=== PATIENT | female | born 1990 | race Caucasian/White ===

== ENCOUNTER 2021-04-25 01:47 | Inpatient (IN) | payer MEDICAID ==
[~2021-04-25] VITALS: Ht 152.4 cm; Wt 79.8 kg
[2021-04-25] MEDS ORDERED: SODIUM CHLORIDE 0.9% 1,000 ML IV ONE (02:00)
[2021-04-25 02:33] LABS: BASOPHILS % 0.6 % (0.0-2.0); EOSINOPHILS % 0.7 % (0.0-5.0); HEMATOCRIT. 37.7 % (36.0-48.0); HEMOGLOBIN. 12.9 g/dL (12.0-16.0); LYMPHOCYTES % 21.9 % (20.0-50.0); MEAN CORPUSCULAR VOLUME 87.5 fL (81.0-99.0); MEAN PLATELET VOLUME 8.1 fl (7.4-10.4); MONOCYTES % 6.3 % (2.0-8.0); NEUTROPHILS % 70.5 % (40.0-76.0); PLATELET 218 x1000/uL (130-400); RED BLOOD CELL COUNT 4.31 mill/uL (4.2-5.4)
[2021-04-25 02:36] LABS: CHLORIDE 106 mEq/L (98-107)
[2021-04-25 02:59] LABS: CLARITY URINE CLEAR (CLEAR); COLOR URINE RED (YELLOW); KETONES URINE NEGATIVE (NEGATIVE); LEUKOCYTE ESTERASE URINE TRACE (NEGATIVE); NITRITE URINE NEGATIVE (NEGATIVE); OCCULT BLOOD URINE 3+ (NEGATIVE); PH URINE 5.5 (4.5-8.0); PROTEIN URINE 1+ (NEGATIVE); SPECIFIC GRAVITY URINE 1.006 (1.005-1.030); UROBILINOGEN URINE 0.2 E.U./dL (0.2-1.0)
[2021-04-25 03:01] LABS: B-HCG QUANTITATIVE 41032 mIU/mL (<3)
[2021-04-25 20:30] VITALS: BP 118/72
[2021-04-25 22:30] VITALS: BP 118/72
[2021-04-25] MEDS ORDERED: DEXT 5%/LACTATED RINGERS 1,000 ML IV SCH (23:30)
[2021-04-26] VITALS: BP 115/62
[2021-04-26 04:00] VITALS: BP 118/67
[2021-04-26] MEDS ORDERED: PNV1TABL50 PO (04:29)
[2021-04-26 07:21] LABS: BASOPHILS % 0.7 % (0.0-2.0); EOSINOPHILS % 1.2 % (0.0-5.0); HEMATOCRIT. 34.9 % (36.0-48.0); HEMOGLOBIN. 12.3 g/dL (12.0-16.0); LYMPHOCYTES % 22.7 % (20.0-50.0); MEAN CORPUSCULAR HEMOGLOBIN 30.7 pg (28.0-32.0); MEAN CORPUSCULAR VOLUME 87.1 fL (81.0-99.0); MEAN PLATELET VOLUME 8.2 fl (7.4-10.4); NEUTROPHILS % 69.4 % (40.0-76.0); PLATELET 194 x1000/uL (130-400); RED BLOOD CELL COUNT 4.01 mill/uL (4.2-5.4); RED CELL DISTRIBUTION WIDTH 13.1 % (11.6-14.6)
[2021-04-26 08:00] VITALS: BP 110/64
[2021-04-26] MEDS ORDERED: PRENATAL VIT/FE FUMARATE/FA TABLET PO SCH (09:00)
[2021-04-26] MEDS ORDERED: FERROUS SULFATE 325MG TABLET PO SCH (09:00)
[2021-04-26 12:00] VITALS: BP 122/69
[2021-04-26 12:51] VITALS: BP 122/69
== END 2021-04-26 15:00 | disposition home or self-care (01) | DRG 566 ==
LOC: EDBD 01:47 → ER 01:47 → MICUSO 09:49 → 8WST 19:31
PROVIDERS: ADMIT Specialist; ATTEND Specialist
PROC: 30233N1 Transfusion of Nonautologous Red Blood Cells into Peripheral Vein, Percutaneous Approach (ICD-10-PCS; principal; 2021-04-25)
DX: O44.32 Partial placenta previa with hemorrhage, second trimester (principal); E87.1 Hypo-osmolality and hyponatremia; O24.112 Pre-existing type 2 diabetes mellitus, in pregnancy, second trimester; E11.9 Type 2 diabetes mellitus without complications; O99.282 Endocrine, nutritional and metabolic diseases complicating pregnancy, second trimester; Z3A.14 14 weeks gestation of pregnancy; O20.0 Threatened abortion
CPT/HCPCS: 36415; 76801; 80053; 81003; 84702; 85025; 86592; 86762; 86850; 86900; 86920; 93005; 99285; J7030; J7121; P9016

== ENCOUNTER 2021-10-11 16:51 | Observation (INO) | payer MEDICAID, OTHER ==
[~2021-10-11 16:51] MED LIST: PNV1TABL50 PO
== END 2021-10-11 20:06 | disposition home or self-care (01) ==
LOC: ER 16:51 → 8 EST LDRP 17:24
PROVIDERS: ADMIT Obstetrics & Gynecology; ATTEND Obstetrics & Gynecology
DX: O26.893 Other specified pregnancy related conditions, third trimester (principal); L29.9 Pruritus, unspecified; Z3A.36 36 weeks gestation of pregnancy
CPT/HCPCS: 59025; 76805; 76818; G0378; 99281

== ENCOUNTER 2021-11-06 17:32 | Emergency (ER) | payer MEDICAID, OTHER ==
[~2021-11-06] VITALS: Ht 147.3 cm; Wt 77.0 kg
[2021-11-06 17:35] VITALS: BP 163/93
[2021-11-06] MEDS ORDERED: NA PHOS,M-B/NA PHOS,DI-BA ENEMA 118ML PR ONE (18:00)
[2021-11-06] MEDS ORDERED: LACT1CAP78 MT (18:00)
[2021-11-06] MEDS ORDERED: POLY17PO3 MT (18:00)
[2021-11-06] MEDS ORDERED: NA P133E4 RC (18:00)
== END 2021-11-06 18:52 | disposition home or self-care (01) ==
LOC: ER 17:32
DX: K59.00 Constipation, unspecified (principal); Z98.890 Other specified postprocedural states
CPT/HCPCS: 99282

== ENCOUNTER 2024-06-22 19:14 | Emergency (ER) | payer MEDICAID, OTHER ==
[~2024-06-22] VITALS: Ht 147.3 cm; Wt 77.0 kg
[~2024-06-22 19:14] MED LIST changes: +LACT1CAP78 MT; +NA P133E4 RC; +POLY17PO3 MT
[2024-06-22 19:40] VITALS: O2SAT 100
[2024-06-22 20:59] LABS: BASOPHILS % 0.8 % (0.0-2.0); EOSINOPHILS % 0.8 % (0.0-5.0); HEMATOCRIT. 44.3 % (36.0-48.0); HEMOGLOBIN. 15.5 g/dL (12.0-16.0); MEAN CORPUSCULAR HEMOGLOBIN 31.5 pg (28.0-32.0); MEAN CORPUSCULAR VOLUME 90.1 fL (81.0-99.0); MEAN PLATELET VOLUME 8.4 fl (7.4-10.4); MONOCYTES % 6.2 % (2.0-8.0); NEUTROPHILS % 64.2 % (40.0-76.0); PLATELET 246 x1000/uL (130-400); RED BLOOD CELL COUNT 4.92 mill/uL (4.2-5.4); RED CELL DISTRIBUTION WIDTH 12.5 % (11.6-14.6); WHITE BLOOD COUNT 7.5 x1000/uL (4.5-11.0)
[2024-06-22 21:04] LABS: CHLORIDE 104 mEq/L (98-107); POTASSIUM 3.7 mEq/L (3.5-5.1); SODIUM 139 mEq/L (136-145)
[2024-06-22 21:05] LABS: CALCIUM 10.2 mg/dL (8.7-10.4); CARBON DIOXIDE 30 mEq/L (21-32)
[2024-06-22 21:10] LABS: CREATININE 0.7 mg/dL (0.6-1.0); GLUCOSE 188 mg/dL (70-105); UREA NITROGEN BLOOD 10 mg/dL (9-23)
[2024-06-22] MEDS: IBUPROFEN 600MG TABLET PO STA (21:30)
[2024-06-22] MEDS: MECLIZINE 25MG TABLET PO ONE (21:30)
[2024-06-22] MEDS ORDERED: MECL-299 MT (21:50)
[2024-06-22 22:00] VITALS: BP 148/79; PULSE 85; RESP 17; TEMP 36.61404; O2SAT 100
== END 2024-06-22 22:00 | disposition home or self-care (01) ==
LOC: ER 19:14
DX: R42 Dizziness and giddiness (principal); Z79.899 Other long term (current) drug therapy
CPT/HCPCS: 99284; 80048; 85025; 36415; 93005; J8597